=== PATIENT | female | born 1965 | race Caucasian/White ===

== ENCOUNTER 2025-04-30 15:09 | Emergency (ER) | payer OTHER, SELFPAY ==
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
[2025-04-30 15:12] VITALS: BP 138/88; PULSE 67; RESP 18; TEMP 36.6; O2SAT 98; BMI 21.3
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
[2025-04-30 17:59] VITALS: BP 138/88; PULSE 67; RESP 18; TEMP 36.6; O2SAT 98
== END 2025-04-30 18:19 | disposition home or self-care (01) ==
LOC: HO.ED 18:05
PROVIDERS: Emergency Provider Emergency Medicine; PCP Nurse Practitioner Adult Health
DX: S06.0XAA Concussion with loss of consciousness status unknown, initial encounter (principal); R51.9 Headache, unspecified; M54.2 Cervicalgia; R42 Dizziness and giddiness; R20.0 Anesthesia of skin; V49.49XA Driver injured in collision with other motor vehicles in traffic accident, initial encounter; Y93.9 Activity, unspecified; Y92.410 Unspecified street and highway as the place of occurrence of the external cause; Y99.9 Unspecified external cause status
CPT/HCPCS: 70450; 72125; 99282; 99284

== ENCOUNTER → 2025-04-30 15:15 | Outpatient (BNV) | payer OTHER, SELFPAY | PROVIDERS: Emergency Provider Emergency Medicine; PCP Nurse Practitioner Adult Health; Visit Provider Radiology Diagnostic Radiology | DX: M25.78 Osteophyte, vertebrae (principal); S09.90XA Unspecified injury of head, initial encounter | CPT/HCPCS: 70450; 72125 ==